=== PATIENT | male | born 1970 | race Caucasian/White ===

== ENCOUNTER 2016-10-24 15:09 | Emergency (ER) | payer MEDICARE, MEDICAID ==
[2016-10-24 15:09] VITALS: BMI 39.5
[2016-10-24 16:12] VITALS: BP 124/84; PULSE 95; TEMP 99.1
--- NOTE | 2016-10-24 16:18 | EDPRACDOC ---
- General Information Chief Complaint: Generalized Weakness Stated Complaint: FLU-LIKE SYMPTOMS Time Seen by Provider: 10/24/16 16:10 Mode Of Arrival: Ambulance Home Medications: Home Medications BuPROPion (Daily formulation) [Wellbutrin Xl] 150 mg PO QAM 03/22/13 Ferrous Sulfate [Iron] 325 mg PO DAILY 03/22/13 Trazodone HCl [Desyrel] 75 mg PO HS 03/22/13 Omeprazole [Prilosec] 20 mg PO DAILY 02/10/14 Cholecalciferol (Vitamin D3) [Vitamin D3] 5,000 units PO DAILY 10/26/14 Fenofibrate [Tricor] 145 mg PO HS 11/07/14 Montelukast Sodium [Singulair] 10 mg PO DAILY 11/07/14 Simvastatin 20 mg PO HS 07/09/15 Fluoxetine HCl [Prozac] 40 mg PO HS 09/17/15 Meloxicam [Mobic] 15 mg PO DAILY 05/13/16 Gabapentin [Neurontin] 300 mg PO HS 07/23/16 Olopatadine HCl [Pataday] 1 drop OU DAILY PRN 07/23/16 Ciprofloxacin HCl [Cipro] 500 mg PO BID #14 tab 09/22/16 Dicyclomine HCl [Bentyl] 20 mg PO Q8H PRN #20 tab 09/22/16 Metronidazole [Flagyl] 500 mg PO BID #14 tab 09/22/16 Promethazine [Phenergan] 25 mg PO Q4-6H PRN #15 tab 09/22/16 Azithromycin [Zithromax] 0 mg PO DAILY #6 tablet 10/24/16 Promethazine Dextromethorphan [Phenergan DM] 5 ml PO Q6 PRN #120 ml 10/24/16 Allergies/Adverse Reactions: Allergies Allergy/AdvReac Type Severity Reaction Status Date / Time Penicillins Allergy Unknown Nausea/Vomi Verified 10/24/16 15:57 ting - History of Present Illness Symptoms Started: SUNDAY HPI: PT COMPLAINS OF NON-PROD COUGH, GENERALIZED FATIGUE, SORE THROAT, HEADACHE, WEAKNESS, FEVER FOR THE LAST "90" HOURS, PT STATES HIS MOUTH IS DRY AND HE FEELS DEHYDRATED. PT ALSO STATES HIS LEFT KNEE FEELS "HEATED", STATES HAD SURGERY AT [facility] TO REMOVE 2 PIECES OF GLASS FROM HIS KNEE, SURGERY LAST WEEK. Symptoms: Reports: Cough, Earache, Fever, Headache, Nasal Symptoms, Sore Throat , Myalgia. Denies: Nausea, Vomiting Recently Treated Infections:: Denies: Otitis media, Pneumonia, URI Recent Medications: Reports: None Relevant History Of: Reports: None Shortness of Breath: None Cough Frequency: Intermittent Cough Description: Reports: Non-productive Rhinorrhea: Reports: Clear Ear Symptoms: Reports: None Associated Signs and Symptoms: Reports: Cough, Earache, Fever, Headache, Nasal Symptoms, Sore Throat, Myalgia. Denies: Nausea, Vomiting, Diarrhea, Rash, Pain with head movement, AMS ED Past Medical History - History Reviewed Yes Nurses notes reviewed and agree except as marked - Patient Medical History Cardiac History: Reports: Hypertension, Cardiac Catheterization (04/2014 NORMAL CORONARY ARTERIES), Stress Test, Hypercholesterolemia Respiratory History: Reports: Asthma, COPD, Chronic Bronchitis, Emphysema, Pulmonary Embolism (LEFT LUNG OCT 2013) GI/ History: Reports: Kidney (Renal Surgery) (LEFT NEPHRECTOMY), Urinary Tract Infection, Gastroesophageal Reflux Musculoskeletal History: Reports: Arthritis, Osteoarthritis Psychological History: Reports: Anxiety, Bipolar Disorder (PARANOIA). Denies: Depression, Substance Use Disorder Systemic History: Reports: Anemia (VIT D, IRON DEF ANEMIA). Denies: Cancer, Diabetes Surgical History: Reports: Cholecystectomy, Cardiac Catheterization (04/2014 NORMAL CORONARY ARTERIES), Other (Spleen, L kidney, L KNEE) - Family Medical History Denies: Hypertension, Diabetes, Cancer, Stroke, Cardiac Disorders - Social Medical History Smoking Status: Former smoker Social History: Denies: Substance Use Disorder ETOH: None Substance Abuse: None EDM Review of Systems - Review of Systems Constitutional: Fever, Fatigue, Weakness. negative: Chills Eyes: negative: Blurred Vision, Double Vision Ears: Pain. negative: Drainage Throat: Pain Nose: Congestion. negative: Discharge Respiratory: Cough. negative: Shortness of Breath, Wheezing Cardiovascular: negative: Chest Pain, Palpitations Gastrointestinal: negative: Diarrhea, Nausea, Pain, Vomiting Genitourinary: negative: Dysuria, Frequency Neurological: Headache. negative: Dizziness, Numbness, Weakness Musculoskeletal: No Symptoms Reported Integumentary: Wound - Physical Exam Constitutional: Alert (Awake), No apparent distress Oriented to: Time, Person, Place Last recorded Vital Signs: Last Vital Signs Temp 99.1 F 10/24/16 16:11 Pulse 95 10/24/16 16:11 Resp 20 10/24/16 16:11 BP 124/84 10/24/16 16:11 Pulse Ox 95 10/24/16 16:11 Oxygen Pulse Oxygen Saturation 95 O2 Device Room Air Oxygen Flow Rate Fraction of Inspired Oxygen ( FIO2) - HEENT Head: Normal ( normocephalic) Eye Exam: Normal (PERRL, EOMI, Sclera white) Oropharynx: Normal (Pharynx:Moist without exudate,Gums-no swelling) Tympanic Membrane: Normal ENT EAC: Normal TMJ: Normal Nose: No Symptoms Reported (septum midline) Neck: Normal (FROM, trachea at midline) - Respiratory/Cardiovascular Respiratory: Normal - CTA (BBS clear to auscultation without adventitious sounds ) Cardiovascular: Normal (RRR without murmur, gallop or rub) - GI Auscultation: Normal (NABS) Palpation: Normal (Soft,No rebound or guarding, non distended) Tenderness: Non tender Banuelos's Sign: Negative - Musculoskeletal Back: Normal (Non-Tender) Extremities: Normal (Normal tone, Pulses 2+ No cyanosis or edema, FROM) - Integumentary Skin: Warm, Dry, Other (LEFT LATERAL KNEE: 2 SURGICAL INCISIONS, HEALING WELL, SUTURES IN PLACE, NO DRAINAGE, INDURATION, FLUCTUANCE, OR INCREASED TEMP) Lymphatics: Normal (no adenopathy) - Neurologic Memory Impaired: Normal Motor Function: Normal (Normal tone, Pulses 2+ No cyanosis or edema, FROM) Cranial Nerve: Normal (CN II-X11 intact sensation, strength 5/5) Cerebellar: Normal Mood Description: Normal Perception: Normal - Differential Diagnosis Bronchitis, Otitis Media, Pneumonia, Sinusitis Decision Time to Discharge: 16:20 - Departure Disposition: Home Condition: Stable Final Diagnosis: Acute bronchitis Qualifiers: Bronchitis organism: unspecified organism Qualified Code(s): J20.9 - Acute bronchitis, unspecified Instructions: Acute Bronchitis (ED) Education/Counseling Given To: Patient Education/Counseling Given Regarding: Diagnosis, Treatment, Prognosis, Follow Up Referrals: None,No Provider [Primary Care Provider] - One Week Prescriptions: Azithromycin [Zithromax] 0 mg PO DAILY #6 tablet Promethazine Dextromethorphan [Phenergan DM] 5 ml PO Q6 PRN #120 ml PRN Reason: Cough Additional Instructions: REST, DRINK PLENTY OF FLUIDS, USE TYLENOL EVERY 4 HOURS AND MOTRIN EVERY 6 HOURS NEEDED FOR PAIN OR FEVER, FOLLOW UP WITH YOUR SURGEON SCHEDULED FOR SUTURE REMOVAL.
--- NOTE | 2016-10-24 16:27 | DIRPT ---
CLINICAL DATA: Headache, cough and congestion. EXAM: CHEST - 2 VIEW COMPARISON: 06/26/2016 FINDINGS: There is no evidence of pulmonary edema, consolidation, pneumothorax, nodule or pleural fluid. The heart size is normal. The visualized skeletal structures are unremarkable. IMPRESSION: No active disease. Electronically Signed By: Efrain Prieto M.D. On: 10/24/2016 16:24
== END 2016-10-24 16:30 | disposition home or self-care (01) ==
LOC: EDMC 15:09
DX: J20.9 Acute bronchitis, unspecified (principal)
CPT/HCPCS: 71020; 99282

== ENCOUNTER 2016-11-05 18:08 | Emergency (ER) | payer MEDICARE, MEDICAID ==
[2016-11-05 18:08] VITALS: BMI 39.5
[2016-11-05 18:18] VITALS: BP 128/67; PULSE 77; TEMP 98.4
== END 2016-11-05 21:00 | disposition left against medical advice (07) ==
LOC: ED 18:08
DX: R10.9 Unspecified abdominal pain (principal)
CPT/HCPCS: 99281

== ENCOUNTER 2016-11-17 15:14 | Emergency (ER) | payer MEDICARE, MEDICAID ==
[2016-11-17 15:14] VITALS: BMI 39.5
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
[2016-11-17 15:29] VITALS: TEMP 98.3
[2016-11-17 15:50] LABS: AUTOMATED EOSINOPHIL 3.2 % (0-5); AUTOMATED LYMPH 40.7 % (17-44); AUTOMATED MONOCYTE 8.6 % (3-10); AUTOMATED NEUTROPHIL 46.5 % (45-76); MPV 9.3 fL (7.4-10.4)
[2016-11-17 15:59] LABS: BLOOD UREA NITROGEN 21 MG/DL (9-20); CALCIUM 9.3 MG/DL (8.4-10.2); CALCULATED OSMOLALITY 270 MOs/Kg (270-290); CHLORIDE 105 mEq/L (98-107); GLUCOSE 87 mg/dL (70-99); SODIUM LEVEL 139 mEq/L (137-146); TOTAL PROTEIN 7.4 G/DL (6.3-8.2)
[2016-11-17 16:49] VITALS: BP 127/76; PULSE 69
== END 2016-11-17 17:23 | disposition home or self-care (01) ==
LOC: ED 15:14
DX: R53.1 Weakness (principal)
CPT/HCPCS: 36415; 80053; 85025; 93005; 99282